=== PATIENT | female | born 1955 | race Caucasian/White ===

== ENCOUNTER 2017-09-15 15:06 | Observation (INO) ==
[2017-09-15 16:09] LABS: Bilirubin,Urine Negative (Negative); Blood,Urine Moderate (Negative); Clarity,Urine Clear (Clear); Color,Urine Yellow (Yellow); Glucose,Urine (UA) Normal (Normal); Ketones,Urine 15 mg/dL (Negative); Leukocyte Esterase,Urine Trace (Negative); Nitrite,Urine Negative (Negative); Protein,Urine 100 mg/dL (Neg-Trace); Specific Gravity,Urine 1.014 (1.010-1.025); Urobilinogen,Urine Normal (Normal)
[2017-09-15 16:14] LABS: Bacteria,Urine Few per hpf (None-Few); Hyaline Casts,Urine None Seen per lpf (None-Few); RBC,Urine 30-50 per hpf (0-3); Squamous Epithelial Cell,Urine Many per lpf (None-Few)
[2017-09-15 16:37] LABS: Basophils # 0.1 K/mcL (0.0-0.2); Basophils % 0.5 %; Eosinophils % 0.1 %; Hematocrit 44.8 % (35.3-44.9); Hemoglobin 15.2 g/dL (11.5-15.4); Immature Granulocytes % 0.5 % (0-4); Lymphocytes # 1.2 K/mcL (0.6-4.6); Lymphocytes % 8.3 %; Mean Corpuscular HGB Conc 33.9 g/dL (31.6-35.5); Mean Corpuscular Hemoglobin 30.2 pg (28.0-33.3); Mean Corpuscular Volume 88.9 fL (83.0-100.0); Monocytes # 0.5 K/mcL (0.0-1.3); Monocytes % 3.4 %; Neutrophils # 12.7 K/mcL (1.6-8.9); Platelet Count 351 K/mcL (140-400); Red Blood Count 5.04 M/mcL (3.82-4.97); Red Cell Distribution Width 12.2 % (11.5-14.5); Segmented Neutrophils % 87.2 %
[2017-09-15 16:53] LABS: Alanine Aminotransferase 14 Units/L (7-52); Albumin 4.7 g/dL (3.5-5.7); Albumin/Globulin Ratio 1.6 (1.1-2.2); Alkaline Phosphatase 68 Units/L (34-104); Amylase 18 Units/L (29-103); Aspartate Amino Transferase 15 Units/L (13-39); BUN/Creatinine Ratio 9 (6-26); Bilirubin,Direct 0.1 mg/dL (0.0-0.2); Bilirubin,Indirect 0.5 mg/dL (0.0-1.2); Bilirubin,Total 0.6 mg/dL (0.3-1.0); Blood Urea Nitrogen 7 mg/dL (6-20); Calcium 9.8 mg/dL (8.6-10.3); Carbon Dioxide 26 mEq/L (23-29); Chloride 98 mEq/L (98-107); Glucose 144 mg/dL (70-105); Lipase 7 Units/L (11-82); Osmolality,Calculated 281 (280-300); Potassium 3.5 mEq/L (3.5-5.1); Sodium 135 mEq/L (136-145); Total Protein 7.7 g/dL (6.4-8.9); eGFR For African Americans > 60 (> 60); eGFR For Non-African Americans > 60 (> 60)
--- NOTE | 2017-09-15 19:06 | Emergency Department Note ---
Disposition Clinical Impression: Acute appendicitis Qualifiers: Acute appendicitis type: unspecified acute appendicitis type Qualified Code(s) : K35.80 - Unspecified acute appendicitis Disposition: Admitted As Inpatient Condition: Fair Referrals: Nara Walter CNP [Primary Care Provider] - Forms: ED Satisfaction Letter, Work/School Release Time of Disposition: 20:48 General Adult HPI - General Chief complaint: ED Abdominal Pain Stated complaint: Abd pain Time Seen by Provider: 09/15/17 18:41 Source: patient Mode of arrival: ambulatory Limitations: no limitations Nursing Notes Reviewed: Yes Vital Signs Reviewed: Yes - History of Present Illness HPI Narrative: Patient is a 61-year-old female with past medical history including hypertension , who presents with chief complaint of abdominal pain. Patient states that she has not had a bowel movement in 4 days. Yesterday she developed intermittent crampy abdominal pain. The abdominal pain is generalized and has been worsening in the past day. She also complains of nausea when she tries to eat food. Today she is unable to tolerate water or food. She had 4 episodes of nonbloody vomiting. She has taken for suppositories, and milk of magnesia within the past couple of days with no bowel movements. She has never experienced this before. She denies fevers, chills, chest pain, shortness of breath, dysuria. She has not had any flatus. The only surgery she has had is a complete hysterectomy otherwise no abdominal surgeries. Pain Scale: 9 - Related Data Home Medications Medication Instructions Recorded Confirmed Lisinopril [Zestril] 10 mg PO DAILY 07/25/17 07/25/17 Nortriptyline [Pamelor] 10 mg PO 07/25/17 Ranitidine HCl [Acid Net Trainer] 75 mg PO 07/25/17 RisperiDONE [Risperdal] 0.5 mg PO 07/25/17 diazePAM [Diazepam] 5 mg PO 07/25/17 Previous Rx's Medication Instructions Recorded Albuterol Sulfate [Albuterol 2 puff IH Q6HR PRN #1 inhaler 07/25/17 Inhaler] Benzonatate [Tessalon] 200 mg PO TID PRN #20 capsule 07/25/17 Allergies Allergy/AdvReac Type Severity Reaction Status Date / Time gabapentin [From Neurontin] Allergy Palpitation Verified 12/16/15 12:32 s hydroflouriquin Allergy See Uncoded 12/16/15 12:32 Comments All systems ED: reviewed and negative except as stated. Review of Systems: As Per HPI Constitutional: Denies: fever, chills Eyes: Denies: vision change Cardiovascular: Denies: chest pain, palpitations Respiratory: Denies: cough, dyspnea Gastrointestinal: Reports: abdominal pain, nausea, vomiting, constipation Genitourinary: Denies: urgency, dysuria Musculoskeletal: Denies: back pain Integumentary: Denies: rash Neurological: Denies: headache, weakness Past Medical History - Past Medical History Attestation: Yes The following information was validated with the patient. Medical history: Reports: cancer, fibromyalgia, GERD, hypertension, other Psychiatric history: Reports: anxiety, bipolar, depression, PTSD - Social History Smoking Status: Current every day smoker Smokeless Tobacco Status: No Alcohol use: Reports: rarely Drug use: Reports: none Physical Exam - General Limitations: no limitations General appearance: alert - Head Head exam: atraumatic, normocephalic - Respiratory Respiratory exam: Present: normal lung sounds bilaterally - Cardiovascular Cardiovascular exam: Present: normal rhythm, tachycardia - Abdominal Exam Abdominal exam: Present: soft, diminished bowel sounds. Absent: distention, guarding, rebound, rigidity Abdominal tenderness: Present: RUQ, RLQ - Neurological Exam Neurological exam: Present: alert, oriented X3 - Psychiatric Psychiatric exam: Present: normal affect, normal mood - Skin Skin exam: Present: warm, dry, intact Course Course Narrative: Patient is a 61 year old female who presents with abdominal pain and unable to have a bowel movement in four days. Patient is tachycardic on arrival. CBC, BMP , lipid panel, urinalysis obtained. Labs returned with mild leukocytosis, no abnormalities in LFTs and bilirubin. Urinalysis with no signs of infection. Will obtain CT abdomen and pelvis without contrast to further evaluate abdominal pain, associated with right sided tenderness on exam. Will give one liter bolus IVFs and bentyl for pain. 19:56 CT abdomen and pelvis results shows acute appendicitis. Will consult surgery. 20:08 Discussed with surgery, Dr. Belle. Patient will be accepted. No IV antibiotics at this time. Patient is aware of CT results. She is understanding of the plan of care. All questions were answered. Vital Signs Temperature 97.8 F 09/15/17 15:35 Pulse Rate 118 09/15/17 15:35 Respiratory Rate 22 09/15/17 15:35 Blood Pressure 142/92 09/15/17 15:35 O2 Sat by Pulse Oximetry 93 09/15/17 15:35 Temperature 97.8 F 09/15/17 15:35 Pulse Rate 118 09/15/17 15:35 Respiratory Rate 22 09/15/17 15:35 Blood Pressure 142/92 09/15/17 15:35 O2 Sat by Pulse Oximetry 93 09/15/17 15:35 Oxygen Delivery Oxygen Delivery Room Air Medical Decision Making - Medical Records Medical records reviewed: Yes I reviewed the patient's medical records. - Lab Data Lab results reviewed: Yes I reviewed the patient's lab results. Result diagrams: 09/15/17 16:16 09/15/17 16:16 Lab Results 09/15/17 09/15/17 09/15/17 Range/Units 15:57 16:16 16:16 WBC 14.6 H (4.3-11.1) K/mcL RBC 5.04 H (3.82-4.97) M/mcL Hgb 15.2 (11.5-15.4) g/dL Hct 44.8 (35.3-44.9) % MCV 88.9 (83.0-100.0) fL MCH 30.2 (28.0-33.3) pg MCHC 33.9 (31.6-35.5) g/dL RDW 12.2 (11.5-14.5) % Plt Count 351 (140-400) K/mcL MPV 9.0 L (9.4-12.4) fL Immature Gran % 0.5 (0-4) % Seg Neutrophils % 87.2 % Lymphocytes % 8.3 % Monocytes % 3.4 % Eosinophils % 0.1 % Basophils % 0.5 % Neutrophils # 12.7 H (1.6-8.9) K/mcL Lymphocytes # 1.2 (0.6-4.6) K/mcL Monocytes # 0.5 (0.0-1.3) K/mcL Eosinophils # 0.0 (0.0-0.6) K/mcL Basophils # 0.1 (0.0-0.2) K/mcL Sodium 135 L (136-145) mEq/L Potassium 3.5 (3.5-5.1) mEq/L Chloride 98 (98-107) mEq/L Carbon Dioxide 26 (23-29) mEq/L BUN 7 (6-20) mg/dL Creatinine 0.74 (0.60-1.20) mg/dL Est GFR ( Amer) > 60 (> 60) Est GFR (Non-Af Amer) > 60 (> 60) BUN/Creatinine Ratio 9 (6-26) Glucose 144 H (70-105) mg/dL Calculated Osmolality 281 (280-300) Calcium 9.8 (8.6-10.3) mg/dL Total Bilirubin 0.6 (0.3-1.0) mg/dL Direct Bilirubin 0.1 (0.0-0.2) mg/dL Indirect Bilirubin 0.5 (0.0-1.2) mg/dL AST 15 (13-39) Units/L ALT 14 (7-52) Units/L Alkaline Phosphatase 68 (34-104) Units/L Serum Total Protein 7.7 (6.4-8.9) g/dL Albumin 4.7 (3.5-5.7) g/dL Globulin 3.0 (2.4-3.5) g/dL Albumin/Globulin Ratio 1.6 (1.1-2.2) Amylase 18 L (29-103) Units/L Lipase 7 L (11-82) Units/L Urine Color Yellow (Yellow) Urine Clarity Clear (Clear) Urine pH 8.0 (5.0-8.0) pH Units Ur Specific [place] 1.014 (1.010-1.025) Urine Protein 100 H (Neg-Trace) mg/dL Urine Glucose (UA) Normal (Normal) mg/dL Urine Ketones 15 H (Negative) mg/dL Urine Blood Moderate H (Negative) Urine Nitrite Negative (Negative) Urine Bilirubin Negative (Negative) Urine Urobilinogen Normal (Normal) mg/dL Ur Leukocyte Esterase Trace H (Negative) Urine Microscopic RBC 30-50 H (0-3) per hpf Urine Microscopic WBC 5-15 H (0-3) per hpf Ur Squamous Epith Cells Many H (None-Few) per lpf Urine Bacteria Few (None-Few) per hpf Hyaline Casts None Seen (None-Few) per lpf Ur Culture Indicated? NO. A (NO) - Radiology Data Radiology results reviewed: Yes I reviewed the patient's radiology results. Abdomen/Pelvis CT 09/15/17 19:21 IMPRESSION: Findings are consistent with acute uncomplicated appendicitis, without evidence of perforation, free air, or abscess. D/ / 09/15/2017 19:54:56 Nicolás Butt MD / chandra Interpreting Provider: Nicolás Butt MD
[2017-09-15] MEDS ORDERED: 0.9 % Sodium Chloride 1,000 ML IVC ONE (19:20)
--- NOTE | 2017-09-15 19:59 | Emergency Department Note ---
Disposition Clinical Impression: Acute appendicitis Disposition: Admitted As Inpatient Referrals: Nara Walter SUPERVISOR OF [employer]IC[employer]S [Primary Care Provider] - Forms: ED Satisfaction Letter, Work/School Release General Adult HPI - General Chief complaint: ED Abdominal Pain Stated complaint: Abd pain Time Seen by Provider: 09/15/17 18:41 Source: patient Mode of arrival: ambulatory Limitations: no limitations - History of Present Illness Pain Scale: 9 - Related Data Home Medications Medication Instructions Recorded Confirmed Lisinopril [Zestril] 10 mg PO DAILY 07/25/17 07/25/17 Nortriptyline [Pamelor] 10 mg PO 07/25/17 Ranitidine HCl [Acid Aoc Director Combat Plans Officer] 75 mg PO 07/25/17 RisperiDONE [Risperdal] 0.5 mg PO 07/25/17 diazePAM [Diazepam] 5 mg PO 07/25/17 Previous Rx's Medication Instructions Recorded Albuterol Sulfate [Albuterol 2 puff IH Q6HR PRN #1 inhaler 07/25/17 Inhaler] Benzonatate [Tessalon] 200 mg PO TID PRN #20 capsule 07/25/17 Allergies Allergy/AdvReac Type Severity Reaction Status Date / Time gabapentin [From Neurontin] Allergy Palpitation Verified 12/16/15 12:32 s hydroflouriquin Allergy See Uncoded 12/16/15 12:32 Comments Constitutional: Denies: fever, chills Eyes: Denies: vision change Cardiovascular: Denies: chest pain, palpitations Respiratory: Denies: cough, dyspnea Gastrointestinal: Reports: abdominal pain, nausea, vomiting, constipation Genitourinary: Denies: urgency, dysuria Musculoskeletal: Denies: back pain Integumentary: Denies: rash Neurological: Denies: headache, weakness Past Medical History - Past Medical History Medical history: Reports: cancer, fibromyalgia, GERD, hypertension, other Psychiatric history: Reports: anxiety, bipolar, depression, PTSD - Social History Smoking Status: Current every day smoker Smokeless Tobacco Status: No Alcohol use: Reports: rarely Drug use: Reports: none Physical Exam - General Limitations: no limitations General appearance: alert Course Vital Signs Temperature 97.8 F 09/15/17 15:35 Pulse Rate 118 09/15/17 15:35 Respiratory Rate 22 09/15/17 15:35 Blood Pressure 142/92 09/15/17 15:35 O2 Sat by Pulse Oximetry 93 09/15/17 15:35 Temperature 97.8 F 09/15/17 15:35 Pulse Rate 118 09/15/17 15:35 Respiratory Rate 22 09/15/17 15:35 Blood Pressure 142/92 09/15/17 15:35 O2 Sat by Pulse Oximetry 93 09/15/17 15:35 Oxygen Delivery Oxygen Delivery Room Air Medical Decision Making - Lab Data Result diagrams: 09/15/17 16:16 09/15/17 16:16 Lab Results 09/15/17 09/15/17 09/15/17 Range/Units 15:57 16:16 16:16 WBC 14.6 H (4.3-11.1) K/mcL RBC 5.04 H (3.82-4.97) M/mcL Hgb 15.2 (11.5-15.4) g/dL Hct 44.8 (35.3-44.9) % MCV 88.9 (83.0-100.0) fL MCH 30.2 (28.0-33.3) pg MCHC 33.9 (31.6-35.5) g/dL RDW 12.2 (11.5-14.5) % Plt Count 351 (140-400) K/mcL MPV 9.0 L (9.4-12.4) fL Immature Gran % 0.5 (0-4) % Seg Neutrophils % 87.2 % Lymphocytes % 8.3 % Monocytes % 3.4 % Eosinophils % 0.1 % Basophils % 0.5 % Neutrophils # 12.7 H (1.6-8.9) K/mcL Lymphocytes # 1.2 (0.6-4.6) K/mcL Monocytes # 0.5 (0.0-1.3) K/mcL Eosinophils # 0.0 (0.0-0.6) K/mcL Basophils # 0.1 (0.0-0.2) K/mcL Sodium 135 L (136-145) mEq/L Potassium 3.5 (3.5-5.1) mEq/L Chloride 98 (98-107) mEq/L Carbon Dioxide 26 (23-29) mEq/L BUN 7 (6-20) mg/dL Creatinine 0.74 (0.60-1.20) mg/dL Est GFR ( Amer) > 60 (> 60) Est GFR (Non-Af Amer) > 60 (> 60) BUN/Creatinine Ratio 9 (6-26) Glucose 144 H (70-105) mg/dL Calculated Osmolality 281 (280-300) Calcium 9.8 (8.6-10.3) mg/dL Total Bilirubin 0.6 (0.3-1.0) mg/dL Direct Bilirubin 0.1 (0.0-0.2) mg/dL Indirect Bilirubin 0.5 (0.0-1.2) mg/dL AST 15 (13-39) Units/L ALT 14 (7-52) Units/L Alkaline Phosphatase 68 (34-104) Units/L Serum Total Protein 7.7 (6.4-8.9) g/dL Albumin 4.7 (3.5-5.7) g/dL Globulin 3.0 (2.4-3.5) g/dL Albumin/Globulin Ratio 1.6 (1.1-2.2) Amylase 18 L (29-103) Units/L Lipase 7 L (11-82) Units/L Urine Color Yellow (Yellow) Urine Clarity Clear (Clear) Urine pH 8.0 (5.0-8.0) pH Units Ur Specific [place] 1.014 (1.010-1.025) Urine Protein 100 H (Neg-Trace) mg/dL Urine Glucose (UA) Normal (Normal) mg/dL Urine Ketones 15 H (Negative) mg/dL Urine Blood Moderate H (Negative) Urine Nitrite Negative (Negative) Urine Bilirubin Negative (Negative) Urine Urobilinogen Normal (Normal) mg/dL Ur Leukocyte Esterase Trace H (Negative) Urine Microscopic RBC 30-50 H (0-3) per hpf Urine Microscopic WBC 5-15 H (0-3) per hpf Ur Squamous Epith Cells Many H (None-Few) per lpf Urine Bacteria Few (None-Few) per hpf Hyaline Casts None Seen (None-Few) per lpf Ur Culture Indicated? NO. A (NO) Attestation Statement - Attestation Attestation: I examined this patient and my medical decision-making was reviewed with the Resident Physician. I agree with the documented findings, disposition and treatment plan as described except to the extent set forth below. 61-year-old female presents emergency room for abdominal pain since yesterday in the day before. She states she has been constipated for 4 days. She is claiming of pain all through the abdomen specifically to the right side. CT shows evidence of acute appendicitis. We will consult with general surgery. We will start the patient on IV antibiotics, IV fluids. Consult with Dr Belle.
[2017-09-15] MEDS ORDERED: Bupivacaine/EPI 1:200k 0.25%PF 30 ML VIAL ONE (20:37)
[2017-09-15] MEDS ORDERED: Ondansetron 4 MG/2 ML VIAL IVP ONE (21:04)
[2017-09-15] MEDS ORDERED: Ondansetron 4 MG/2 ML VIAL ONE ×3 (21:05→22:16)
--- NOTE | 2017-09-15 21:08 | General Surg History&Physical ---
Date of Encounter: 09/15/17 Time of Encounter: 20:35 History of Present Illness Chief complaint: Progressive right lower quadrant abdominal pain, acute appendicitis HPI: Ms. Noyola is a 61 year old female referred for further evaluation and treatment progressive right lower quadrant abdominal pain radiologic evidence of acute appendicitis. The patient describes being unable to move her bowels for 4 days and feels "impacted". The patient describes progressive right lower quadrant abdominal pain over the last 36-48 hours with anorexia and vomiting which occurred today. Patient denies any fevers or chills. White count on presentation 14.6 with 12.7 neutrophils; hemoglobin 15.2, hematocrit 44.8. Electrolytes, BUN, creatinine were within an acceptable range. The CT was reviewed. Based on the patient's physical findings, radiologic findings and presentation she was referred to surgical services for further evaluation and treatment. Past surgical history: Tubal ligation; hysterectomy; tumor removed from her back in the remote past 2; excision cutaneous neoplasm left nare Medical history: Hypertension, GERD, fibromyalgia, cutaneous neoplasm; anxiety, bipolar disorder, depression, PTSD Allergies: Gabapentin and hydroflouriquin Medications: Lisinopril 10 mg by mouth daily Nortriptyline 10 mg by mouth daily Ranitidine 75 mg by mouth once or twice daily Risperidone 0.5 mg by mouth daily Diazepam 5 mg by mouth, frequency not specified Social history: Patient admits to current vaping, which she states is without nicotine; she does admit to 2-1/2 packs per day for at least 23 years. The patient denies any alcohol or illicit drug use Physical examination: Obese female who appears to be in no acute distress resting comfortably in her ED bed The patient is afebrile, 97.8; pulse on presentation 118 currently 100; respiratory rate on presentation 22, currently 16. Blood pressure on presentation 142/92, currently 128/83. SPO2 on room air 93-100% Skin: Warm, no obvious jaundice Lungs: Clear, no obvious abdominal pain with deep inspiration Cardiac: Rate was regular approximately 100 bpm; there were no audible murmurs Abdomen: Obese, with minimal tenderness in the right lower quadrant. No discernible intra-abdominal masses, no peritoneal signs or rebound. Bowel sounds were hypoactive Extremities: No obvious clubbing, cyanosis, or edema. Impression: 61-year-old female with acute appendicitis. The patient is a reasonable candidate for laparoscopic appendectomy but understands that open appendectomy may become necessary. Risks of surgery include hemorrhage, infection, intra-abdominal abscess, injury to adjacent structures such as small bowel, colon, bladder, ureters. If a normal appendix is encountered it will be removed to eliminate this potential diagnosis in the future. Alternative treatment includes hospital admission with IV antibiotics and pain control with the possibility of avoiding surgery. Risks of this treatment include progressive abdominal pain and worsening appendicitis with possible perforation. If the patient recovers, the potential for recurrent acute appendicitis remains. The patient, and her daughter who was in attendance , expressed understanding and a desire to proceed with surgical intervention. Surgical consent has been obtained. Past Med Surg Social Fam HX - Past Medical History Medical history: cancer, fibromyalgia, GERD, hypertension, other Additional medical history: skin cancer, chronic neck pain Psychiatric history: anxiety, bipolar, depression, PTSD - Past Surgical History Additional surgical history: tumor removed from back - Social History Smoking Status: Current every day smoker Smokeless Tobacco Status: No Alcohol use: rarely Drug use: none Medications and Allergies Albuterol Sulfate [Albuterol Inhaler] 2 puff IH Q6HR PRN #1 inhaler 07/25/17 [Rx ] Benzonatate [Tessalon] 200 mg PO TID PRN #20 capsule 07/25/17 [Rx] Lisinopril [Zestril] 10 mg PO DAILY 07/25/17 [History] Nortriptyline [Pamelor] 10 mg PO 07/25/17 [History] Ranitidine HCl [Acid Hospital Internship] 75 mg PO 07/25/17 [History] RisperiDONE [Risperdal] 0.5 mg PO 07/25/17 [History] diazePAM [Diazepam] 5 mg PO 07/25/17 [History] 3 Allergy/AdvReac Type Severity Reaction Status Date / Time gabapentin [From Neurontin] Allergy Palpitation Verified 12/16/15 12:32 s hydroflouriquin Allergy See Uncoded 12/16/15 12:32 Comments Review of Systems All systems PM: The remainder of the systems were reviewed and are negative General Surgery Exam Initial Vital Signs Temp Pulse Resp BP Pulse Ox 97.8 F 118 22 142/92 93 09/15/17 15:35 09/15/17 15:35 09/15/17 15:35 09/15/17 15:35 09/15/17 15:35 Results - Labs 09/15/17 16:16 09/15/17 16:16 Abnormal lab results WBC 14.6 K/mcL (4.3-11.1) H 09/15/17 16:16 RBC 5.04 M/mcL (3.82-4.97) H 09/15/17 16:16 MPV 9.0 fL (9.4-12.4) L 09/15/17 16:16 Neutrophils # 12.7 K/mcL (1.6-8.9) H 09/15/17 16:16 Sodium 135 mEq/L (136-145) L 09/15/17 16:16 Glucose 144 mg/dL (70-105) H 09/15/17 16:16 Amylase 18 Units/L (29-103) L 09/15/17 16:16 Lipase 7 Units/L (11-82) L 09/15/17 16:16 Urine Protein 100 mg/dL (Neg-Trace) H 09/15/17 15:57 Urine Ketones 15 mg/dL (Negative) H 09/15/17 15:57 Urine Blood Moderate (Negative) H 09/15/17 15:57 Ur Leukocyte Esterase Trace (Negative) H 09/15/17 15:57 Urine Microscopic RBC 30-50 per hpf (0-3) H 09/15/17 15:57 Urine Microscopic WBC 5-15 per hpf (0-3) H 09/15/17 15:57 Ur Squamous Epith Cells Many per lpf (None-Few) H 09/15/17 15:57 Ur Culture Indicated? NO. (NO) A 09/15/17 15:57 All other labs normal.
--- NOTE | 2017-09-15 21:52 | Anesthesia Evaluation PreOp ---
Date of Encounter: 09/15/17 Time of Encounter: 21:50 - Past History Planned Operation: Lap appy Cardiac History: HTN, Hyperlipidemia, Arrhythmia (fast HR) Pulmonary History: Smoker, COPD SUPERVISOR INSPECTION History: Denies Any Significant HX Other Medical History: Denies Any Significant HX Anesthesia History: No Prior Anesthetic Complications Alcohol Use: rarely Drug use: none Medications and Allergies Albuterol Sulfate [Albuterol Inhaler] 2 puff IH Q6HR PRN #1 inhaler 07/25/17 [Rx ] Benzonatate [Tessalon] 200 mg PO TID PRN #20 capsule 07/25/17 [Rx] Lisinopril [Zestril] 10 mg PO DAILY 07/25/17 [History] Nortriptyline [Pamelor] 10 mg PO 07/25/17 [History] Ranitidine HCl [Acid Final Application Reviewer] 75 mg PO 07/25/17 [History] RisperiDONE [Risperdal] 0.5 mg PO 07/25/17 [History] diazePAM [Diazepam] 5 mg PO 07/25/17 [History] 3 Allergy/AdvReac Type Severity Reaction Status Date / Time gabapentin [From Neurontin] Allergy Palpitation Verified 12/16/15 12:32 s hydroflouriquin Allergy See Uncoded 12/16/15 12:32 Comments - Meds/Allergy Pre-op Review Medications Reviewed: Yes Allergies Reviewed: Yes Beta Blockers on Current Med List: No Anesthesia Results - Labs 09/15/17 16:16 09/15/17 16:16 - Imaging Additional studies: Holter monitor: Impression: 1. Baseline rhythm is normal sinus throughout recording. 2. Rare PACs. No PVCs. 3. No atrial or ventricular arrhythmias. No pauses. 4. No diary returned by patient. Anesthesia Exam Last Vital Signs Temp 97.8 F 09/15/17 15:35 Pulse 100 09/15/17 20:50 Resp 18 09/15/17 21:15 BP 143/56 09/15/17 21:15 Pulse Ox 100 09/15/17 20:50 Weight: 82 kg NPO (# of Hours): > 8 hrs - HEENT Pupil (Motor): Pupils equal, EOMI Mallampati: III Teeth: Missing, Poor dentition Oral Opening: Greater than 3 - SUPERVISOR INSPECTION LOC: Oriented - Cardiac Rhythm: Regular Murmur: None - Pulmonary Breath Sounds: bilateral Clear Respiratory Effort: Symmetrical Anesthesia Assess/Plan ASA Score: 3 Modified Wallace Scale for Level of Consciousness: Cooperative, oriented, and tranquil Anesthetic Plan: General Monitoring Plan: Standard Monitors Recovery Plan: PACU
[2017-09-15] MEDS ORDERED: *HR* Midazolam HCl 2 MG/2 ML VIAL ONE (21:57)
[2017-09-15] MEDS ORDERED: *HR* FentaNYL (PF) 100 MCG/2 ML VIAL ONE ×2 (21:57→23:03)
[2017-09-15] MEDS ORDERED: *HR* Propofol 200 MG/20 ML VIAL IVP ONE (21:57)
[2017-09-15] MEDS ORDERED: *HR* Succinylcholine 200 MG/10 ML VIAL IVP ONE (21:58)
[2017-09-15] MEDS ORDERED: Lidocaine -MPF 2% 2 ML VIAL ONE (21:58)
[2017-09-15] MEDS ORDERED: Dexamethasone 4 MG/ML VIAL ONE ×2 (21:58→22:16)
[2017-09-15] MEDS ORDERED: CefOXitin 2,000 MG VIAL ONE (22:04)
[2017-09-15] MEDS ORDERED: *HR* PHENYLEPHRINE 1,000 MCG/10 ML SYRINGE IVP ONE ×2 (22:16→22:32)
[2017-09-15] MEDS ORDERED: *HR* Rocuronium Bromide 50 MG/5 ML VIAL ONE (22:18)
[2017-09-15] MEDS ORDERED: EPHEDrine 50 MG/ML VIAL ONE (22:20)
[2017-09-15] MEDS ORDERED: Neostigmine Methylsulfate 3 MG/3 ML SYRINGE ONE (22:21)
[2017-09-15] MEDS ORDERED: *HR* OxyCODONE Immed Rel 5 MG TABLET PO PRN (22:39)
[2017-09-15] MEDS ORDERED: *HR* Promethazine 25 MG/ML VIAL IVP PRN (22:39)
[2017-09-15] MEDS ORDERED: Ringers Solution, Lactated 500 ML IVC ONE (23:31)
--- NOTE | 2017-09-15 23:33 | Operative Note ---
Date of procedure: 09/15/17 Pre-op diagnosis: Acute appendicitis Post-op diagnosis: same (Acute appendicitis) Procedure: Laparoscopic appendectomy Complications: None apparent Anesthesia: GETA Local Anesthetics: 0.25% Sensorcaine HCL with Epinephrine 1:200,000 SubQ (cc) ( 30 mL) Surgeon: Fernando Belle Was there an insurance account assistant present: No Estimated blood loss (cc): 20 IV fluids (cc): 1,400 Specimen: appendix Condition: stable Disposition: PACU Procedure in Detail: The patient was brought to the operating room and placed supine on the procedure table. The patient was appropriately identified as to person, procedure, and laterality. The accuracy of this information was confirmed by the patient and procedure team. The patient was then intubated and anesthetized under the supervision of Dr. Kecia Worrell. The abdomen was prepped and draped in the usual sterile fashion. Several milliliters of 0.25% bupivacaine with 1 200,000 epinephrine was infiltrated into the infraumbilical skin. A small transverse incision was made. Dissection was extended to the fascia. The fascia was grasped and elevated. Additional bupivacaine with epinephrine was infiltrated before incising the fascia. An 11 mm Xcel port was established. The rigid laparoscope was placed within the obturator to visualize passage through the layers of the anterior abdominal wall. When the abdominal cavity was accessed, the obturator was replaced by the rigid laparoscope. The abdomen was insufflated with gaseous carbon dioxide. There was no obvious visible injury from establishing the port. Under direct visualization a 5 mm port was placed in the suprapubic midline, and a 12 mm port placed in the left lower quadrant midclavicular line. Both of these sites were infiltrated with the bupivacaine with epinephrine solution. The cecum was identified and elevated. A short, thickened appendix with minimal surrounding inflammation was identified and dissected from the surrounding tissue. The mesoappendix was divided at the junction of the appendix with the cecum. The appendix was transected at its junction with the cecum using an Ethicon ATS 45 mm stapler using a blue cartridge. The remainder of the mesoappendix was divided with the Ethicon ATS 45 mm stapler using vascular cartridges. When the appendix was from the surrounding structures, it was placed in an endoscopic pouch and extracted through the infraumbilical opening. The appendix was recovered and sent to pathology for further evaluation. There was no obvious perforation. The staple lines were inspected and found to be intact. A small amount sanguineous fluid was evacuated. Hemostasis was deemed adequate. The pneumoperitoneum was evacuated, the laparoscopic instrumentation removed. The fascia of the infraumbilical port site was closed with interrupted [id number] 0 Vicryl using S retractors. The skin edges were approximated with subcuticular 4-0 Vicryl. The incisions were sealed with Dermabond dermal adhesive. The patient was taken to recovery in stable condition. Needle, sponge, and instrument counts were correct at the close of the case. Total volume of 0.25% bupivacaine with 1-200,000 units of epinephrine , 30 mL.
--- NOTE | 2017-09-16 00:10 | Anesthesia Evaluation Post Op ---
Date of Encounter: 09/16/17 Time of Encounter: 00:09 - Vital Signs Vital Signs: Last Vital Signs Temp 98.7 F 09/15/17 23:53 Pulse 95 09/15/17 23:53 Resp 18 09/15/17 23:53 BP 138/75 09/15/17 23:53 Pulse Ox 96 09/15/17 23:53 - Lungs Lungs: Clear Ascult./Percussion - Airway Airway: Non-obstructed - Cardiovascular Regular Rate - Mental Status Mental Status: Alert & Oriented, Answers Appropriately - Pain Pain Scale: 5 - Nausea Vomiting Nausea Vomiting: Not Present - Hydration Hydration: Ice chips - Discharge PostOp Status: Transfer Patient to floor
[2017-09-16] MEDS ORDERED: Acetaminophen 325 MG TABLET PO PRN (00:13)
[2017-09-16] MEDS ORDERED: *HR* OxyCODONE Immed Rel 5 MG TABLET PO PRN (00:13)
[2017-09-16] MEDS: Ringers Solution, Lactated 1,000 ML IVC SCH ×2 (00:39→08:37)
[2017-09-16] MEDS: *HR* OxyCODONE/APAP 5/325 TABLET PO PRN ×2 (01:06→07:50)
[2017-09-16] MEDS: Albuterol 2.5 MG/3 ML NEBULIZER IH SCH ×2 (03:35→11:18)
[2017-09-16 10:19] LABS: Basophils % 0.2 %; Hematocrit 35.2 % (35.3-44.9); Immature Granulocytes % 0.4 % (0-4); Lymphocytes # 1.1 K/mcL (0.6-4.6); Mean Corpuscular HGB Conc 33.2 g/dL (31.6-35.5); Mean Corpuscular Hemoglobin 30.5 pg (28.0-33.3); Mean Corpuscular Volume 91.9 fL (83.0-100.0); Mean Platelet Volume 8.9 fL (9.4-12.4); Monocytes # 0.6 K/mcL (0.0-1.3); Monocytes % 4.3 %; Neutrophils # 12.3 K/mcL (1.6-8.9); Platelet Count 282 K/mcL (140-400); Red Blood Count 3.83 M/mcL (3.82-4.97); Red Cell Distribution Width 12.6 % (11.5-14.5); Segmented Neutrophils % 87.1 %
[2017-09-16 10:25] LABS: Hemoglobin 11.7 g/dL (11.5-15.4)
[2017-09-16 10:34] LABS: Blood Urea Nitrogen 8 mg/dL (6-20); Calcium 8.5 mg/dL (8.6-10.3); Carbon Dioxide 24 mEq/L (23-29); Chloride 106 mEq/L (98-107); Glucose 154 mg/dL (70-105); Osmolality,Calculated 283 (280-300); Potassium 3.9 mEq/L (3.5-5.1); Sodium 136 mEq/L (136-145)
[2017-09-16 10:52] VITALS: BP 106/63
[2017-09-16 11:18] LABS: BUN/Creatinine Ratio 11 (6-26); eGFR For African Americans > 60 (> 60); eGFR For Non-African Americans > 60 (> 60)
--- NOTE | 2017-09-16 12:47 | General Surgery Progress Note ---
Date of Encounter: 09/16/17 Time of Encounter: 11:20 Subjective Patient reports: feels better, still having pain, pain is less, tolerating liquids well Narrative: General Surgery - POD #1 Patient feeling better with diminished right lower quadrant abdominal pain. The sense of fecal urgency is resolved. No nausea/vomiting The patient has been afebrile, pulse 89, respirations 14-17; blood pressure 106/63. SPO2 on room air 97% Lungs: Clear; no abdominal pain with deep inspiration Cardiac: Regular rate, no appreciable murmurs Abdomen: Soft with minimal tenderness in the right lower quadrant; tenderness infraumbilical port site as expected status post laparoscopic appendectomy. Port sites intact, clean and dry. Active bowel sounds. Postop labs: White count 14.1, likely reaction to surgery; hemoglobin 11.7 with hematocrit 35.2 - slightly diminished in response to perioperative fluids. Electrolytes, BUN, creatinine stable and within normal limits. Impression: Postoperative day #1, status post laparoscopic appendectomy. Satisfactory postoperative status plan: Discharge home Outpatient follow-up, 09/27/17 Objective Vital Signs - Last 8 Hours Temp Pulse Resp BP Pulse Ox 09/16/17 11:18 17 97 09/16/17 10:48 97.2 F L 89 16 106/63 96 09/16/17 06:35 97.7 F 88 14 120/77 94 Intake and Output 09/15/17 09/16/17 09/16/17 23:59 07:59 15:59 Intake Total 500 / 500 20 / 20 1800 / 1800 Output Total 25 / 25 1050 / 1050 Balance 475 / 475 -1030 / -1030 1800 / 1800 Intake: IV Fluids 500 / 500 1000 / 1000 Lactated Ringers 1,000 ML @ 100 500 / 500 1000 / 1000 mls/hr IVC .Q10H RADHA Rx#: [id number] Oral 20 / 20 800 / 800 Output: Urine 1050 / 1050 Estimated Blood Loss 25 / 25 Other: # Voids 1 - Labs 09/16/17 10:01 09/16/17 10:01 Diabetes panel 09/16/17 Range/Units 10:01 Sodium 136 (136-145) mEq/L Potassium 3.9 (3.5-5.1) mEq/L Chloride 106 (98-107) mEq/L Carbon Dioxide 24 (23-29) mEq/L BUN 8 (6-20) mg/dL Creatinine 0.72 (0.60-1.20) mg/dL Glucose 154 H (70-105) mg/dL Calcium 8.5 L (8.6-10.3) mg/dL Calcium panel 09/16/17 Range/Units 10:01 Calcium 8.5 L (8.6-10.3) mg/dL Pituitary panel 09/16/17 Range/Units 10:01 Sodium 136 (136-145) mEq/L Potassium 3.9 (3.5-5.1) mEq/L Chloride 106 (98-107) mEq/L Carbon Dioxide 24 (23-29) mEq/L BUN 8 (6-20) mg/dL Creatinine 0.72 (0.60-1.20) mg/dL Glucose 154 H (70-105) mg/dL Calcium 8.5 L (8.6-10.3) mg/dL Adrenal panel 09/16/17 Range/Units 10:01 Sodium 136 (136-145) mEq/L Potassium 3.9 (3.5-5.1) mEq/L Chloride 106 (98-107) mEq/L Carbon Dioxide 24 (23-29) mEq/L BUN 8 (6-20) mg/dL Creatinine 0.72 (0.60-1.20) mg/dL Glucose 154 H (70-105) mg/dL Calcium 8.5 L (8.6-10.3) mg/dL - VTE Documentation of Mechanical Device: Intermittent pneumatic compression device Consult Discharge Plan - Plan Instructions: Laparoscopic Appendectomy (DC) Referrals: Fernando Belle MD [Non-Partnered Physician] - 09/27/17 2:00 pm
--- NOTE | 2017-09-16 12:51 | Discharge Summary ---
Outpatient Proc Discharge Plan - Plan Instructions: Laparoscopic Appendectomy (DC) Additional Instructions: Regular diet Patient may shower, wash incisions with soap and water Activity as tolerated; lifting limited to less than 24 pounds Tylenol, Motrin, Advil, Aleve, etc. as needed for pain Prescription for Percocet 5/325, #12, one every 6 hours as needed for pain not relieved by [id number] medication Patient may resume home meds Patient is not to take any laxatives Outpatient follow-up, 09/27/17; patient to call office to make this appointment Prescriptions: OxyCODONE/APAP 5/325 [Percocet 5/325 MG] 1 each PO Q6HR PRN 3 Days #12 tablet PRN Reason: Pain Home Medications: Acetaminophen [Tylenol] 650 mg PO Q6HR PRN tablet 09/16/17 [Rx] Lisinopril/Hydrochlorothiazide [Zestoretic 20-12.5 mg Tablet] 2 tab PO BID 09/16 [History] Nortriptyline [Pamelor] 75 mg PO HS 09/16/17 [History] OxyCODONE/APAP 5/325 [Percocet 5/325 MG] 1 each PO Q6HR PRN 3 Days #12 tablet [Rx] diazePAM [Valium] 10 mg PO BID PRN 09/16/17 [History] raNITIdine HCl [Ranitidine HCl] 300 mg PO DAILY 09/16/17 [History] risperiDONE [Risperdal] 2 mg PO HS 09/16/17 [History]
== END 2017-09-16 13:11 | disposition home or self-care (01) ==
LOC: EMEROO 15:06 → 3ANU 20:48 → INTOOBSV 20:48 → 3ANU 21:15
PROVIDERS: ADMIT Surgery; ATTEND Surgery

== ENCOUNTER 2019-06-12 15:04 | Observation (INO) ==
[2019-06-12] MEDS ORDERED: Aspirin 325 MG TABLET PO ONE (15:22)
[2019-06-12 15:54] LABS: Basophils # 0.1 K/mcL (0.0-0.2); Basophils % 0.7 %; Eosinophils # 0.2 K/mcL (0.0-0.6); Eosinophils % 1.6 %; Hematocrit 45.8 % (35.3-44.9); Immature Granulocytes % 0.3 % (0-4); Lymphocytes # 2.1 K/mcL (0.6-4.6); Lymphocytes % 20.6 %; Mean Corpuscular HGB Conc 32.8 g/dL (31.6-35.5); Mean Corpuscular Hemoglobin 30.2 pg (28.0-33.3); Mean Corpuscular Volume 92.2 fL (83.0-100.0); Mean Platelet Volume 8.8 fL (9.4-12.4); Monocytes # 0.5 K/mcL (0.0-1.3); Monocytes % 4.4 %; Neutrophils # 7.4 K/mcL (1.6-8.9); Platelet Count 364 K/mcL (140-400); Red Blood Count 4.97 M/mcL (3.82-4.97); Red Cell Distribution Width 11.9 % (11.5-14.5); Segmented Neutrophils % 72.4 %; White Blood Count 10.2 K/mcL (4.3-11.1)
[2019-06-12 16:16] LABS: Alanine Aminotransferase 14 Units/L (7-52); Albumin 4.6 g/dL (3.5-5.7); Albumin/Globulin Ratio 1.5 (1.1-2.2); Alkaline Phosphatase 73 Units/L (34-104); Aspartate Amino Transferase 15 Units/L (13-39); BUN/Creatinine Ratio 14 (6-26); Bilirubin,Total 0.4 mg/dL (0.3-1.0); Blood Urea Nitrogen 11 mg/dL (8-23); Calcium 10.2 mg/dL (8.6-10.3); Carbon Dioxide 25 mEq/L (23-29); Chloride 101 mEq/L (98-107); Glucose 139 mg/dL (70-105); Lipase 12 Units/L (11-82); Osmolality,Calculated 286 (280-300); Potassium 3.5 mEq/L (3.5-5.1); Sodium 137 mEq/L (136-145); Total Protein 7.6 g/dL (6.4-8.9); eGFR For African Americans > 60 (> 60); eGFR For Non-African Americans > 60 (> 60)
[2019-06-12 16:17] LABS: Troponin I < 0.03 ng/mL (< 0.04)
[2019-06-12] MEDS ORDERED: 0.9 % Sodium Chloride 1,000 ML IVC ONE (16:29)
[2019-06-12 17:23] LABS: Adenovirus Not Detected (Not Detect); Bordetella Pertussis Not Detected (Not Detect); Chlamydophila pneumoniae Not Detected (Not Detect); Coronavirus 229E Not Detected (Not Detect); Coronavirus HKU1 Not Detected (Not Detect); Coronavirus NL63 Not Detected (Not Detect); Coronavirus OC43 Not Detected (Not Detect); Human Metapneumovirus Not Detected (Not Detect); Human Rhinovirus/Enterovirus Not Detected (Not Detect); Influenza A Subtype 2009 H1 Not Detected (Not Detect); Influenza B Not Detected (Not Detect); Mycoplasma pneumoniae Not Detected (Not Detect); Parainfluenza Virus 1 Not Detected (Not Detect); Parainfluenza Virus 2 Not Detected (Not Detect); Parainfluenza Virus 3 Not Detected (Not Detect); Parainfluenza Virus 4 Not Detected (Not Detect); Respiratory Syncytial Virus Not Detected (Not Detect)
[2019-06-12 17:31] LABS: Bilirubin,Urine Negative (Negative); Blood,Urine Negative (Negative); Clarity,Urine Clear (Clear); Color,Urine Yellow (Yellow); Glucose,Urine (UA) Normal (Normal); Ketones,Urine Negative (Negative); Leukocyte Esterase,Urine Negative (Negative); Nitrite,Urine Negative (Negative); Protein,Urine Negative (Neg-Trace); Specific Gravity,Urine 1.007 (1.010-1.025); Urobilinogen,Urine Normal (Normal)
[2019-06-12] MEDS ORDERED: Naloxone 0.4 MG/ML INJ IVP PRN (18:08)
[2019-06-12] MEDS ORDERED: diazePAM 10 MG TABLET PO PRN (18:13)
[2019-06-12] MEDS ORDERED: risperiDONE 1 MG TABLET PO SCH (21:00)
[2019-06-12] MEDS: Ringers Solution, Lactated 1,000 ML IVC SCH (22:32)
[2019-06-12] MEDS: *HR* Heparin 5,000 UNIT/ML VIAL SQ SCH (22:37)
[2019-06-12] MEDS: Lisinopril-HCTZ 20-12.5mg TABLET PO SCH (23:58)
[2019-06-13] MEDS ORDERED: Acetaminophen 325 MG TABLET PO PRN (02:13)
[2019-06-13 04:05] LABS: INR 1.1; Prothrombin Time 12.7 Seconds (9.4-12.1)
[2019-06-13 04:07] LABS: Activated Partial Thrombo Time 35.2 Seconds (26.0-36.0)
[2019-06-13 04:19] LABS: Basophils # 0.1 K/mcL (0.0-0.2); Basophils % 0.5 %; Eosinophils # 0.1 K/mcL (0.0-0.6); Eosinophils % 0.8 %; Hematocrit 47.3 % (35.3-44.9); Hemoglobin 14.3 g/dL (11.5-15.4); Immature Granulocytes % 0.6 % (0-4); Lymphocytes # 0.7 K/mcL (0.6-4.6); Lymphocytes % 5.6 %; Mean Corpuscular HGB Conc 30.2 g/dL (31.6-35.5); Mean Corpuscular Hemoglobin 28.7 pg (28.0-33.3); Mean Platelet Volume 10.2 fL (9.4-12.4); Monocytes # 0.4 K/mcL (0.0-1.3); Monocytes % 3.5 %; Neutrophils # 10.9 K/mcL (1.6-8.9); Platelet Count 328 K/mcL (140-400); Red Blood Count 4.98 M/mcL (3.82-4.97); Red Cell Distribution Width 14.1 % (11.5-14.5); White Blood Count 12.2 K/mcL (4.3-11.1)
[2019-06-13 04:59] LABS: BUN/Creatinine Ratio 26 (6-26); Blood Urea Nitrogen 18 mg/dL (8-23); Calcium 8.9 mg/dL (8.6-10.3); Carbon Dioxide 36 mEq/L (23-29); Chloride 100 mEq/L (98-107); Glucose 154 mg/dL (70-105); Magnesium 2.1 mg/dL (1.6-2.6); Osmolality,Calculated 297 (280-300); Phosphorous 3.7 mg/dL (2.7-4.5); Potassium 4.7 mEq/L (3.5-5.1); Sodium 141 mEq/L (136-145); eGFR For African Americans > 60 (> 60); eGFR For Non-African Americans > 60 (> 60)
[2019-06-13] MEDS: *HR* Heparin 5,000 UNIT/ML VIAL SQ SCH (05:26)
[2019-06-13] MEDS: Lisinopril-HCTZ 20-12.5mg TABLET PO SCH (08:10)
[2019-06-13] MEDS: Ringers Solution, Lactated 1,000 ML IVC SCH (10:49)
[2019-06-13 12:05] VITALS: BP 125/79
[2019-06-14] MEDS ORDERED: *HR* Enoxaparin 40 MG/0.4 ML SYRINGE SQ SCH (06:00)
== END 2019-06-13 14:47 | disposition home or self-care (01) ==
LOC: 2NENU 15:04 → EMEROOARM 15:04 → SUATTDRO 18:18 → 2NENU 18:55
PROVIDERS: ADMIT Internal Medicine; ATTEND Internal Medicine

== ENCOUNTER 2020-07-14 05:20 | Observation (INO) ==
[2020-07-14 06:25] LABS: Basophils # 0.1 K/mcL (0.0-0.2); Eosinophils # 0.2 K/mcL (0.0-0.6); Eosinophils % 2.8 %; Hematocrit 45.7 % (35.3-44.9); Hemoglobin 15.4 g/dL (11.5-15.4); Immature Granulocytes % 0.1 % (0-4); Lymphocytes # 2.4 K/mcL (0.6-4.6); Lymphocytes % 32.9 %; Mean Corpuscular HGB Conc 33.7 g/dL (31.6-35.5); Mean Corpuscular Hemoglobin 30.8 pg (28.0-33.3); Mean Corpuscular Volume 91.4 fL (83.0-100.0); Mean Platelet Volume 9.2 fL (9.4-12.4); Monocytes # 0.5 K/mcL (0.0-1.3); Monocytes % 6.3 %; Neutrophils # 4.1 K/mcL (1.6-8.9); Platelet Count 326 K/mcL (140-400); Red Cell Distribution Width 12.3 % (11.5-14.5); Segmented Neutrophils % 56.9 %; White Blood Count 7.3 K/mcL (4.3-11.1)
[2020-07-14 06:39] LABS: Activated Partial Thrombo Time 31.3 Seconds (26.0-36.0)
[2020-07-14 06:50] LABS: Alanine Aminotransferase 16 Units/L (7-52); Albumin 4.5 g/dL (3.5-5.7); Albumin/Globulin Ratio 1.5 (1.1-2.2); Alkaline Phosphatase 69 Units/L (34-104); Aspartate Amino Transferase 17 Units/L (13-39); BUN/Creatinine Ratio 13 (6-26); Bilirubin,Indirect 0.4 mg/dL (0.0-1.0); Bilirubin,Total 0.4 mg/dL (0.3-1.0); Blood Urea Nitrogen 10 mg/dL (8-23); Calcium 10.2 mg/dL (8.6-10.3); Carbon Dioxide 25 mEq/L (23-29); Chloride 102 mEq/L (98-107); Glucose 113 mg/dL (70-105); Lipase 21 Units/L (11-82); Osmolality,Calculated 286 (280-300); Potassium 3.5 mEq/L (3.5-5.1); Sodium 138 mEq/L (136-145); Total Protein 7.5 g/dL (6.4-8.9); Troponin I < 0.03 ng/mL (< 0.04); eGFR For African Americans > 60 (> 60); eGFR For Non-African Americans > 60 (> 60)
[2020-07-14 08:44] LABS: Bilirubin,Urine Negative (Negative); Blood,Urine Negative (Negative); Clarity,Urine Clear (Clear); Color,Urine Light-Yellow (Yellow); Glucose,Urine (UA) Normal (Normal); Ketones,Urine Negative (Negative); Leukocyte Esterase,Urine Negative (Negative); Nitrite,Urine Negative (Negative); PH,Urine 7.5 pH Units (5.0-8.0); Protein,Urine Negative (Neg-Trace); Specific Gravity,Urine 1.011 (1.010-1.025); Urobilinogen,Urine Normal (Normal)
[2020-07-14] MEDS ORDERED: Naloxone 0.4 MG/ML INJ IVP PRN (08:46)
[2020-07-14] MEDS ORDERED: Ondansetron ODT 4 MG TAB.RAPDIS SL PRN (08:46)
[2020-07-14] MEDS ORDERED: MOM Conc 10 ML UD.LIQ PO PRN (08:46)
[2020-07-14] MEDS ORDERED: Mag Hydrox/Al Hydrox/Simeth 30 ML UDC PO PRN (08:46)
[2020-07-14] MEDS ORDERED: Perflutren Lipid Microsphere 1.3 ML in 0.9 % Sodium Chloride 8.7 ML IVP PRN (08:51)
[2020-07-14] MEDS ORDERED: Gadolinium Contrast Agent (WT Based) IV PRN (09:01)
[2020-07-14] MEDS: Aspirin Enteric Coated 81 MG Tablet PO SCH (13:01)
[2020-07-14 13:48] LABS: Thyroid Stimulating Hormone 1.695 mcIU/mL (0.340-5.600)
[2020-07-14 13:58] LABS: Folate 20.7 ng/mL (3.0-16.0)
[2020-07-14] MEDS ORDERED: Nitroglycerin 0.4 MG TAB.SUBL SL PRN (15:27)
[2020-07-14] MEDS ORDERED: Nitroglycerin 0.4 MG TAB.SUBL SL ONE (15:30)
[2020-07-14] MEDS ORDERED: Morphine Sulfate 2 MG/ML SYRINGE IVP PRN (15:58)
[2020-07-14] MEDS: Melatonin 3 MG TABLET PO PRN (23:05)
[2020-07-15 03:49] LABS: BUN/Creatinine Ratio 15 (6-26); Blood Urea Nitrogen 12 mg/dL (8-23); Calcium 9.6 mg/dL (8.6-10.3); Carbon Dioxide 27 mEq/L (23-29); Chloride 105 mEq/L (98-107); Chol/HDL Ratio 4.1 (0-4.9); Cholesterol 164 mg/dL (< 200); Glucose 113 mg/dL (70-105); HDL Cholesterol 40 mg/dL (40-59); LDL Cholesterol,Calculated 96 mg/dL (< 100); Osmolality,Calculated 289 (280-300); Potassium 3.7 mEq/L (3.5-5.1); Sodium 139 mEq/L (136-145); Triglycerides 141 mg/dL (< 150); eGFR For African Americans > 60 (> 60); eGFR For Non-African Americans > 60 (> 60)
[2020-07-15 03:50] LABS: Hematocrit 43.1 % (35.3-44.9); Hemoglobin 14.3 g/dL (11.5-15.4); Mean Corpuscular HGB Conc 33.2 g/dL (31.6-35.5); Mean Corpuscular Hemoglobin 30.7 pg (28.0-33.3); Mean Corpuscular Volume 92.5 fL (83.0-100.0); Mean Platelet Volume 9.2 fL (9.4-12.4); Platelet Count 304 K/mcL (140-400); Red Blood Count 4.66 M/mcL (3.82-4.97); Red Cell Distribution Width 12.2 % (11.5-14.5); White Blood Count 7.9 K/mcL (4.3-11.1)
[2020-07-15] MEDS: *HR* Enoxaparin 40 MG/0.4 ML SYRINGE SQ SCH (05:36)
[2020-07-15] MEDS ORDERED: Regadenoson 0.4 MG/5 ML SYRINGE IVP ONE (06:18)
[2020-07-15] MEDS: Aspirin Enteric Coated 81 MG Tablet PO SCH (10:05)
[2020-07-15] MEDS: Melatonin 3 MG TABLET PO PRN (22:05)
[2020-07-15] MEDS: Acetaminophen 325 MG TABLET PO PRN (23:09)
[2020-07-16] MEDS: *HR* Enoxaparin 40 MG/0.4 ML SYRINGE SQ SCH (06:05)
[2020-07-16] MEDS: Aspirin Enteric Coated 81 MG Tablet PO SCH (08:27)
[2020-07-16] MEDS: Acetaminophen 325 MG TABLET PO PRN (08:30)
[2020-07-16 14:58] VITALS: BP 127/84
[2020-07-16] MEDS ORDERED: diazePAM 10 MG TABLET PO SCH (21:00)
[2020-07-17] MEDS ORDERED: Lisinopril-HCTZ 20-12.5mg TABLET PO SCH (09:00)
== END 2020-07-16 16:52 | disposition home or self-care (01) ==
LOC: EMEROOARM 05:20 → 3BNU 05:20 → SUATTDRO 08:12 → 3BNU 09:01
PROVIDERS: ADMIT Internal Medicine; ATTEND Internal Medicine